=== PATIENT | female | born 1960 | race Caucasian/White ===

== ENCOUNTER → 2016-08-16 | Outpatient (CLI) | payer MEDICAID ==
[~2016-08-16] MED LIST: HYOS0.128 SL; LACT10SO28; LINA145C PO; METH16TA2; OMEP-110 PO; ONDA4TAB7 PO; TRAZ150T68 PO; VENL75TA PO
== END | disposition home or self-care (01) ==
LOC: RAD 07:25
PROVIDERS: ATTEND Family Medicine
DX: M48.02 Spinal stenosis, cervical region (principal); M47.892 Other spondylosis, cervical region
CPT/HCPCS: 72141

== ENCOUNTER 2020-07-26 10:51 | Day surgery (SDC) | payer MEDICARE, MEDICAID ==
[2020-07-25 13:01] LABS: ANION GAP 8 mmol/L (5-15); CHLORIDE 108 mmol/L (98-107)
[2020-07-25 13:05] LABS: ALANINE AMINOTRANSFERASE 22 U/L (12-78); ALKALINE PHOSPHATASE 126 U/L (45-117); BILIRUBIN,TOTAL 0.4 mg/dL (0.2-1.0); CREATININE 0.92 mg/dL (0.55-1.02); TOTAL PROTEIN 7.6 g/dL (6.4-8.2)
[~2020-07-26] VITALS: Ht 157.5 cm; Wt 99.7 kg
[~2020-07-26 10:51] MED LIST changes: +Glimepiride PO; -HYOS0.128 SL; +HYOS0.1281 SL; +TRAZ150T62 PO; -TRAZ150T68 PO; +[UNRECOGNIZED DRUG - OTHER] PO; +jardiance PO
[2020-07-26] MEDS ORDERED: FENTANYL PF 100 MCG/2ML ONE ×2 (10:59→14:05)
[2020-07-26] MEDS ORDERED: MIDAZOLAM 1 MG/ML, 2ML ONE (11:00)
[2020-07-26] MEDS ORDERED: OXYcodone 5 MG/5 ML ORAL.SOL UDC PO PRN (11:00)
[2020-07-26] MEDS ORDERED: hydrALAzine 20 MG/ML, 1ML IV PRN (11:00)
[2020-07-26] MEDS ORDERED: FENTANYL PF 100 MCG/2ML IV PRN (11:00)
[2020-07-26] MEDS ORDERED: ACETAMINOPHEN 325 MG TABLET PO PRN (11:00)
[2020-07-26] MEDS ORDERED: HYDROmorphone 1 MG/ML, 1ML INJ IVPush PRN (11:00)
[2020-07-26] MEDS ORDERED: HALOPERIDOL 5 MG/ML IV PRN (11:00)
[2020-07-26] MEDS ORDERED: MEPERIDINE/PF 25MG/0.5ML IVPush PRN (11:00)
[2020-07-26] MEDS ORDERED: DIPHENHYDRAMINE 50 MG/ML, 1ML IVPush PRN (11:00)
[2020-07-26] MEDS ORDERED: LABETALOL 5MG/ML, 20ML IV PRN (11:00)
[2020-07-26] MEDS ORDERED: GABA-827 PO (11:27)
[2020-07-26] MEDS ORDERED: [UNRECOGNIZED DRUG - OTHER] (11:27)
[2020-07-26 11:30] VITALS: BP 103/70
[2020-07-26] MEDS ORDERED: LACTATED RINGERS 1,000 ML IV SCH (11:30)
[2020-07-26] MEDS ORDERED: CHLORHEXIDINE 15 ML UDC PO ONE (11:30)
[2020-07-26] MEDS ORDERED: CHLORHEXIDINE 15 ML UDC ONE (11:36)
[2020-07-26] MEDS ORDERED: BACITRACIN ZINC OINT 500U/GM, 0.9 GM ONE (11:37)
[2020-07-26] MEDS ORDERED: BACITRACIN 50,000 UNIT ONE (11:37)
[2020-07-26] MEDS ORDERED: NEOMY/POLYMYXIN B GU IRR. 1 ML ONE (11:38)
[2020-07-26] MEDS ORDERED: DEXAMETHASONE 4 MG/ML, 1ML ONE (12:56)
[2020-07-26] MEDS ORDERED: PIPERACILLIN/TAZO/PMX 3.375GM 50 ML ONE (13:11)
[2020-07-26] MEDS ORDERED: CEFAZOLIN 1,000 MG ONE (13:45)
[2020-07-26] MEDS ORDERED: PROPOFOL 10 MG/ML, 20ML ONE (13:45)
[2020-07-26] MEDS ORDERED: GLYCOPYRROLATE 0.2MG/1ML, 5ML ONE (13:45)
[2020-07-26] MEDS ORDERED: SUCCINYLCHOLINE 20 MG/ML, 10ML ONE (13:45)
[2020-07-26] MEDS ORDERED: NEOSTIGMINE 1 MG/ML, 10ML ONE (13:45)
[2020-07-26] MEDS ORDERED: ONDANSETRON 2MG/ML, 2ML ONE (13:45)
[2020-07-26] MEDS ORDERED: ROCURONIUM 10MG/ML,5ML ONE (13:45)
[2020-07-26] MEDS ORDERED: SULF-23 PO ×2 (14:01)
[2020-07-26] MEDS ORDERED: OXYC1TAB14 PO ×2 (14:01)
[2020-07-26] MEDS ORDERED: DIPHENHYDRAMINE 50 MG/ML, 1ML ONE (14:05)
[2020-07-27] MEDS ORDERED: EMPA25TA PO (18:25)
[2020-08-02] MEDS ORDERED: Tpn Per Pharmacy MC (14:00)
[2020-08-02] MEDS ORDERED: ENOX40SY4 SQ (14:00)
[2020-08-02] MEDS ORDERED: BISA10SU4 PR (14:00)
[2020-08-02] MEDS ORDERED: ACET650S12 PR (14:00)
[2020-08-02] MEDS ORDERED: LORA2VIA6 IVPush (14:00)
[2020-08-02] MEDS ORDERED: MICA100V4 IV (14:00)
[2020-08-02] MEDS ORDERED: MORP10VI10 IVPush (14:00)
[2020-08-02] MEDS ORDERED: PIPE3.375 IV (14:00)
[2020-08-02] MEDS ORDERED: ONDA4VIA60 IVPush (14:00)
[2020-08-02] MEDS ORDERED: INSU100I11 SQ-INSULIN (14:00)
== END 2020-07-26 19:00 | disposition home or self-care (01) ==
LOC: OUT 10:51
PROVIDERS: ATTEND Surgery
DX: L02.211 Cutaneous abscess of abdominal wall (principal); E11.9 Type 2 diabetes mellitus without complications; M19.90 Unspecified osteoarthritis, unspecified site; E66.01 Morbid (severe) obesity due to excess calories; F17.210 Nicotine dependence, cigarettes, uncomplicated; Z20.822 Contact with and (suspected) exposure to COVID-19; Z88.0 Allergy status to penicillin; Z88.8 Allergy status to other drugs, medicaments and biological substances; Z79.899 Other long term (current) drug therapy; Z98.890 Other specified postprocedural states; Z80.0 Family history of malignant neoplasm of digestive organs; Z79.4 Long term (current) use of insulin; Z72.89 Other problems related to lifestyle; Z68.41 Body mass index [BMI] 40.0-44.9, adult
CPT/HCPCS: 10061; 36415; 49560; 80053; 82962; 87015; 87070; 87075; 87076; 87077; 87102; 87106; 87116; 87186; 87205; 87206; 87252; 93005; 97605; J0330; J1100; J1200; J2250; J2405; J2543; J2704; J7120; U0003; J0690; J2710; J3010